=== PATIENT | male | born 1965 | race Caucasian/White ===

== ENCOUNTER 2017-01-29 18:33 | Emergency (ER) | payer BC, OTHER ==
[2017-01-29] MEDS ORDERED: Lidocaine 2% Jelly 10 ML Urojet MUCMEM ONE ×2 (19:09→21:01)
[2017-01-29 19:27] VITALS: BP 119/85
--- NOTE | 2017-01-29 19:27 | EDM.PDOC ---
ED HPI GENERAL MEDICAL PROBLEM - General Chief Complaint: General Stated Complaint: LOWER GROIN AND TESTICLE Time Seen by Provider: 01/29/17 18:53 Source of Information: Reports: Patient History Limitations: Reports: No Limitations - History of Present Illness INITIAL COMMENTS - FREE TEXT/NARRATIVE: Patient is a 51-year-old male who presents to the ED complaining of rectal pain. Patient states he was recently evaluated January 16, 2017 at [facility] Emergency Department. He was diagnosed with proctitis and rectal pain. CT of the abdomen and pelvis indicated mild circumferential thickening of the rectal wall but no perirectal inflammatory changes or abscess formations were detected. He was discharged home with Cipro and Flagyl to which he just recently completed. He has not filled any narcotic pain medications. He has not been utilizing sitz baths as instructed. 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 States he has been taking a stool softener with regular bowel movements that are formed but soft. Denies any blood present. He has been mildly nauseated 2nd to pain with no emesis. Denies any pain with urination. He does have some mild cramping noted to his lower abdomen. States he's had intermittent crampiness since onset. Denies any fever/chills, painful urination , history of anal sex, or any additional complaints. 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 Home Meds: Home Meds Ciprofloxacin [Cipro] 500 mg PO BID #14 ml 01/29/17 [Rx] Multivitamin [Multivitamins] 1 cap PO DAILY 01/29/17 [History] metroNIDAZOLE [Flagyl] 500 mg PO Q12H #14 tablet 01/29/17 [Rx] Past Medical History Respiratory History: Reports: Pneumonia, Recurrent, Other (See Below) Other Respiratory History: URI Genitourinary History: Reports: Other (See Below) Other Genitourinary History: proctitis Social & Family History - Tobacco Use Smoking Status *Q: Never Smoker Second Hand Smoke Exposure: No - Alcohol Use Days Per Week of Alcohol Use: 0 - Recreational Drug Use Recreational Drug Use: No ED ROS GENERAL - Review of Systems Review Of Systems: ROS reveals no pertinent complaints other than HPI. ED EXAM, GENERAL - Physical Exam Exam: See Below Exam Limited By: No Limitations General Appearance: Alert, WD/WN, No Apparent Distress Ears: Hearing Grossly Normal Nose: Normal Inspection Throat/Mouth: Normal Voice, No Airway Compromise Neck: Normal Inspection, Supple Respiratory/Chest: No Respiratory Distress, Lungs Clear, Normal Breath Sounds Cardiovascular: Normal Peripheral Pulses, Regular Rate, Rhythm GI/Abdominal: Normal Bowel Sounds, Soft, Non-Tender, No Organomegaly, No Distention, No Mass (Male) Exam: Normal Inspection, Circumcised, Cremasteric Reflex. No: Scrotal Swelling, Scrotum Tenderness (L), Scrotum Tenderness (R), Testicular Tenderness (L), Testicular Tenderness (R) Rectal (Males) Exam: Tenderness (rectum, unable to perform digital rectal exam secondary to pain.) Back Exam: Normal Inspection Neurological: Alert, Oriented, Normal Cognition, Normal Gait Psychiatric: Normal Affect, Normal Mood Skin Exam: Warm, Dry, Intact, Normal Color Course - Vital Signs Last Recorded V/S: Last Vital Signs Temp 97.7 F 01/29/17 18:43 Pulse 77 01/29/17 18:43 Resp 20 01/29/17 18:43 BP 119/85 01/29/17 18:43 Pulse Ox 100 01/29/17 18:43 - Orders/Labs/Meds Meds: Medications Discontinued Medications Generic Name Dose Route Start Last Admin Trade Name Freq PRN Reason Stop Dose Admin Lidocaine HCl 10 ml 01/29/17 19:09 01/29/17 19:19 Xylocaine 2% Jelly MUCMEM 01/29/17 19:10 10 ml ONETIME ONE Administration Lidocaine HCl 10 ml 01/29/17 21:01 01/29/17 21:10 Xylocaine 2% Jelly MUCMEM 01/29/17 21:02 10 ml ONETIME ONE Administration - Re-Assessments/Exams Free Text/Narrative Re-Assessment/Exam: 01/29/17 19:10 E.D. visit January 16, 2017 at [facility] ED diagnosed with proctitis and rectal pain. Per patient CT abdomen/pelvis was obtained indicating he has small abscesses around his rectum. Patient was prescribed cipro/flagyl to which he completed. Has not been utilizing narcotic pain medications although provided a prescription. He has not been doing sitz baths as instructed as david. Pain is worsened with having a BM and traveling [place] [address]. States he has no issues with urinating. No burning sensation present. Denies blood in his stool. Last bm was today described as formed soft. Patient had pain with examination around the rectum. No obvious perirectal abscess present. Will order viscous lidocaine be applied to rectum. Patient has prescription for narcotics already. Pain has decreased around rectum. Inserted tip of eurojet into rectum with immediate relief after applying lidocaine. Requested medical records from previous E.D. visit. Reviewed ED visit January 16, 2017. CT evident pelvis impression: Mild circumferential thickening of the rectal wall but no perirectal inflammatory changes or abscess formations are detected. This is consistent for prostatitis. Patient does not believe additional blood work is required or imaging. Will discharge home with instructions to do sitz baths.Continue with stool softners. Followup with PCP this coming week at [facility]. Off from work for 3 days. Added additional 1 wk of cipro and flagyl. Patient may require evaluation by General Surgeon if begum not improve with another round antibiotics and sitz baths. 01/29/17 21:01 Discharged home with lidocaine eurojet. Patient instructed how to utilize. Discharge instructions were no reprinted. Departure - Departure Time of Disposition: 20:38 Disposition: Home, Self-Care 01 Condition: good Clinical Impression: Proctitis - Discharge Information Prescriptions: Ciprofloxacin [Cipro] 500 mg PO BID #14 ml metroNIDAZOLE [Flagyl] 500 mg PO Q12H #14 tablet Instructions: Proctitis Referrals: PCP,None [Primary Care Provider] - Forms: ED Department Discharge, Return to Work/School Form Additional Instructions: Take the cipro and flagyl has prescribed. Continue using stool softner. Push the fluids. Utilize sitz baths 6 times daily for the next three days. Call [facility] tomorrow to make an appt with Dr. Lester for this week to be reevaluated. No work for 3 days. For pain can utilize ibuprofen 600mg every 6 hour and tylenol 650mg every 6 hours in alternating fashion. Fill your prescription for norco. For severe pain take norco 1 tab every 6 hours. Refrain from driving while taking the norco. Return to the E.D. for any new or worsening symptoms.
== END 2017-01-29 21:01 | disposition home or self-care (01) ==
LOC: JD.ED 18:33
DX: K62.89 Other specified diseases of anus and rectum (principal); Z79.899 Other long term (current) drug therapy
CPT/HCPCS: 99283